=== PATIENT | female | born 1960 | race African-American/Black ===

== ENCOUNTER 2017-04-29 13:25 | Emergency (ER) | payer MEDICARE, MEDICAID ==
[~2017-04-29] VITALS: Ht 157.5 cm; Wt 61.0 kg
[2017-04-29 13:28] VITALS: BP 119/87; PULSE 70; RESP 14; TEMP 98.9; O2SAT 98
[2017-04-29] MEDS ORDERED: ASPI81CH37 CHEW (17:54)
[2017-04-29] MEDS ORDERED: HYDR12.57 PO (17:54)
[2017-04-29] MEDS ORDERED: POTA10CA PO (17:54)
[2017-04-29] MEDS ORDERED: METR-1 PO ×2 (18:12→18:13)
--- NOTE | 2017-04-29 18:12 | PD ---
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 Patient states that she started having vaginal discharge 4 days ago. Patient states that she has low abdominal pelvic discomfort and low back discomfort also over the past 4 days. Patient denies any headache. Patient denies any neck pain. Patient denies any chest pain or shortness of breath. Patient denies abdominal pain. Patient denies any dysuria or frequency. Patient denies any fever chills. PFSH Past Medical History Hypertension: Yes ?: Unknown Past Surgical History Hysterectomy: Yes Social History Alcohol Use: No Tobacco Use: No Substance Use: No Allergies-Medications (Allergen,Severity, Reaction): Coded Allergies: Sulfa (Sulfonamide Antibiotics) (Verified Allergy, Unknown, 04/29/17) Reported Meds & Prescriptions Reported Meds & Active Scripts Active Flagyl (Metronidazole) 500 Mg Tab 4 Tab PO ONCE Reported Aspirin Low Dose (Aspirin) 81 Mg Chew 81 Mg CHEW DAILY Potassium Chloride ER (Potassium Chloride) 10 Meq Cap 10 Meq PO DAILY Hydrochlorothiazide 12.5 Mg Cap 12.5 Mg PO DAILY Review of Systems General / Constitutional: No: Fever Eyes: No: Visual changes HENT: No: Headaches Cardiovascular: No: Chest Pain or Discomfort Respiratory: No: Shortness of Breath Gastrointestinal: No: Abdominal Pain Genitourinary: Positive: Discharge, No: Dysuria Musculoskeletal: No: Pain Skin: No Rash Neurologic: No: Weakness Psychiatric: No: Depression Endocrine: No: Polydipsia Hematologic/Lymphatic: No: Easy Bruising Physical Exam Narrative GENERAL: Well-nourished, well-developed patient. SKIN: Focused skin assessment warm/dry. HEAD: Normocephalic. EYES: No scleral icterus. No injection or drainage. NECK: Supple, trachea midline. No JVD or lymphadenopathy. CARDIOVASCULAR: Regular rate and rhythm without murmurs, gallops, or rubs. RESPIRATORY: Breath sounds equal bilaterally. No accessory muscle use. GASTROINTESTINAL: Abdomen soft, non-tender, nondistended. MUSCULOSKELETAL: No cyanosis, or edema. BACK: Nontender without obvious deformity. No CVA tenderness. 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 No cervical motion tenderness. Uterus is nonenlarged and nontender palpation. No adnexal mass or tenderness. Data Data Last Documented VS Vital Signs Date Time Temp Pulse Resp B/P (MAP) Pulse Ox O2 Delivery O2 Flow Rate FiO2 04/29/17 17:55 19 04/29/17 13:28 98.9 70 119/87 (98) 98 Orders Orders Azithromycin Powd Pack (Zithromax Powd P (04/29/17 18:15) Ceftriaxone Inj (Rocephin Inj) (04/29/17 18:15) Lidocaine 1% Inj (50 Ml) (Xylocaine 1% I (04/29/17 18:15) Gc And Chlamydia Pcr (04/29/17 18:04) Wet Prep Profile (04/29/17 18:04) MDM Medical Decision Making Medical Screen Exam Complete: Yes Emergency Medical Condition: Yes Differential Diagnosis Differential diagnosis including bacterial vaginosis, candidal vaginitis, cervicitis, PID. Narrative Course 56 years old female vaginal discharge. Rocephin 250 mg IM. Zithromax 1 g by mouth. Diagnosis Primary Impression: Cervicitis Patient Instructions: General Instructions Additional Instructions: Flagyl as directed. Follow-up with personal physician. Return if persistent problem or worse. Med/Other Pt SpecificInfo: Prescription(s) given Scripts Metronidazole (Flagyl) 500 Mg Tab 4 TAB PO ONCE for Infection, #4 TAB 0 Refills Prov: Matthias Scott MD 04/29/17 Disposition: 01 DISCHARGE HOME Condition: Stable Matthias Scott MD Apr 29, 2017 18:12
[2017-04-29] MEDS ORDERED: LIDOCAINE HCL 1% 50 ML VIAL IM ONE (18:15)
[2017-04-29] MEDS ORDERED: cefTRIAXone 250 MG VIAL IM ONE (18:15)
[2017-04-29] MEDS ORDERED: AZITHROMYCIN PWD FOR SUSP 1 GM PACKET PO ONE (18:15)
[2017-04-29 22:08] LABS: CHLAMYDIA PCR NOT DETECTED (NOT DETECT); NEISSERIA PCR NOT DETECTED (NOT DETECT)
== END 2017-04-29 19:09 | disposition home or self-care (01) ==
LOC: NEPD 13:25
DX: N72 Inflammatory disease of cervix uteri (principal); I10 Essential (primary) hypertension
CPT/HCPCS: 87210; 87491; 87591; 96372; 99284; J0696

== ENCOUNTER 2018-01-04 17:09 | Observation (INO) | payer MEDICAID, MEDICARE, OTHER ==
[~2018-01-04] VITALS: Ht 157.5 cm; Wt 71.0 kg
[2018-01-04] VITALS (7 sets, daily range): BP systolic 105–169; BP diastolic 57–81; PULSE 52–58; RESP 12–20; TEMP 98–99.4; O2SAT 98–99
[~2018-01-04 17:09] MED LIST: ASPI81CH6 CHEW; HYDR12.57 PO; METR-1 PO; POTA10CA PO
[2018-01-04] MEDS ORDERED: SODIUM CHLORIDE 0.9% FLUSH 10 ML FLUSH IVF PRN (17:30)
--- NOTE | 2018-01-04 17:36 | PD ---
HPI Chief Complaint: Chest Pain Time Seen by Provider: 17:17 Travel History International Travel<30 days: No Contact w/Intl Traveler<30days: No Traveled to known affect area: No History of Present Illness HPI Patient is a 57 year old female presents to the Er for evaluation of CP which makes it difficult to breath. States started last night. No history of CAD. Smoker, HTN, no HLD, no DM. Patient states pain feels heavy. Nothing makes it better or worse. States she was given nitroglycerin by a doctor but was afraid to take it. Symptoms moderate, mid chest, no radiation, associated S/s as above. PFSH Past Medical History Anxiety: Yes Hypertension: Yes Past Surgical History Surgical History: No Previous Surgery Hysterectomy: Yes Social History Alcohol Use: No Tobacco Use: No Substance Use: No Allergies-Medications (Allergen,Severity, Reaction): Coded Allergies: Sulfa (Sulfonamide Antibiotics) (Verified Allergy, Unknown, 01/04/18) Reported Meds & Prescriptions Reported Meds & Active Scripts Active Reported Aspirin Low Dose (Aspirin) 81 Mg Chew 81 Mg CHEW DAILY Potassium Chloride ER (Potassium Chloride) 10 Meq Cap 10 Meq PO DAILY Hydrochlorothiazide 12.5 Mg Cap 12.5 Mg PO DAILY Review of Systems Except as stated in HPI: all other systems reviewed are Neg Physical Exam Narrative GENERAL: WD/WN in nad. SKIN: Warm and dry. HEAD: Atraumatic. Normocephalic. EYES: Pupils equal and round. No scleral icterus. No injection or drainage. ENT: No nasal bleeding or discharge. Mucous membranes pink and moist. NECK: Trachea midline. No JVD. CARDIOVASCULAR: Regular rate and rhythm. No MGR, 2+ bilaterally equal pulses in all four extremities. RESPIRATORY: No accessory muscle use. Clear to auscultation. Breath sounds equal bilaterally. GASTROINTESTINAL: Abdomen soft, non-tender, nondistended. Hepatic and splenic margins not palpable. MUSCULOSKELETAL: Extremities without clubbing, cyanosis, or edema. No obvious deformities. NEUROLOGICAL: Awake and alert. No obvious cranial nerve deficits. Motor grossly within normal limits. Five out of 5 muscle strength in the arms and legs. Normal speech. PSYCHIATRIC: Appropriate mood and affect; insight and judgment normal. Data Data Last Documented VS Vital Signs Date Time Temp Pulse Resp B/P (MAP) Pulse Ox O2 Delivery O2 Flow Rate FiO2 01/04/18 19:09 58 20 143/79 (100) 99 Room Air 01/04/18 17:16 99.4 Orders Orders Electrocardiogram (01/04/18 17:17) Ckmb (Isoenzyme) Profile (01/04/18 17:17) Complete Blood Count With Diff (01/04/18 17:17) Comprehensive Metabolic Panel (01/04/18 17:17) Magnesium (Mg) (01/04/18 17:17) Prothrombin Time / Inr (Pt) (01/04/18 17:17) Act Partial Throm Time (Ptt) (01/04/18 17:17) Troponin I (01/04/18 17:17) Chest, Single Ap (01/04/18 17:17) Ecg Monitoring (01/04/18 17:17) Iv Access Insert/Monitor (01/04/18 17:17) Oximetry (01/04/18 17:17) Oxygen Administration (01/04/18 17:17) Sodium Chloride 0.9% Flush (Ns Flush) (01/04/18 17:30) Aspirin Chew (Aspirin Chew) (01/04/18 19:30) Nitroglycerin Sl (Nitrostat Sl) (01/04/18 19:30) Admit Order (Ed Use Only) (01/04/18 ) Activity Bed Rest With Brp (01/04/18 19:21) Vital Signs (Adult) Q4H (01/04/18 19:21) Cardiac Rhythm .As Directed (01/04/18 19:21) Notify Dr: Other .PRN (01/04/18 19:21) Notify DrRossana Parameters (01/04/18 19:21) Resp Oxygen Nasal Cannula (01/04/18 ) Ckmb (Isoenzyme) Profile (01/04/18 19:21) Ckmb (Isoenzyme) Profile (01/04/18 22:21) Troponin I (01/04/18 19:21) Troponin I (01/04/18 22:21) Electrocardiogram (01/04/18 19:21) Electrocardiogram (01/04/18 22:21) ^ Obtain (01/04/18 19:21) Sodium Chloride 0.9% Flush (Ns Flush) (01/04/18 19:30) Sodium Chloride 0.9% Flush (Ns Flush) (01/04/18 21:00) Wire Annealer / Telemetry ALTON.Q8H (01/04/18 19:21) Admit Order (Ed Use Only) (01/04/18 ) Labs Laboratory Tests Test 01/04/18 17:25 White Blood Count 4.8 TH/MM3 Red Blood Count 4.37 MIL/MM3 Hemoglobin 11.7 GM/DL Hematocrit 36.0 % Mean Corpuscular Volume 82.3 FL Mean Corpuscular Hemoglobin 26.8 PG Mean Corpuscular Hemoglobin Concent 32.5 % Red Cell Distribution Width 13.7 % Platelet Count 217 TH/MM3 Mean Platelet Volume 9.0 FL Neutrophils (%) (Auto) 42.6 % Lymphocytes (%) (Auto) 45.1 % Monocytes (%) (Auto) 10.4 % Eosinophils (%) (Auto) 0.9 % Basophils (%) (Auto) 1.0 % Neutrophils # (Auto) 2.1 TH/MM3 Lymphocytes # (Auto) 2.2 TH/MM3 Monocytes # (Auto) 0.5 TH/MM3 Eosinophils # (Auto) 0.0 TH/MM3 Basophils # (Auto) 0.0 TH/MM3 CBC Comment DIFF FINAL Differential Comment Prothrombin Time 9.8 SEC Prothromb Time International Ratio 1.0 RATIO Activated Partial Thromboplast Time 20.1 SEC Blood Urea Nitrogen 13 MG/DL Creatinine 0.95 MG/DL Random Glucose 88 MG/DL Total Protein 7.9 GM/DL Albumin 3.8 GM/DL Calcium Level 8.7 MG/DL Magnesium Level 2.1 MG/DL Alkaline Phosphatase 60 U/L Aspartate Amino Transf (AST/SGOT) 31 U/L Alanine Aminotransferase (ALT/SGPT) 39 U/L Total Bilirubin 0.3 MG/DL Sodium Level 142 MEQ/L Potassium Level 3.7 MEQ/L Chloride Level 107 MEQ/L Carbon Dioxide Level 22.5 MEQ/L Anion Gap 13 MEQ/L Estimat Glomerular Filtration Rate 73 ML/MIN Total Creatine Kinase 96 U/L Troponin I LESS THAN 0.02 NG/ML [facility] Medical Decision Making Medical Screen Exam Complete: Yes Emergency Medical Condition: Yes Differential Diagnosis ACS, AMI, Gerd, PUD, Pna. Narrative Course Roomed in ED, appears fairly comfortable. CXR, EKG, CBC, CMP, Trop fairly unremarkable. Discussed additional workup for CP and she is agreeable. 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 Diagnosis Primary Impression: Chest pain Jean Castañeda MD Jan 04, 2018 17:36
[2018-01-04 17:52] LABS: AUTOMATED NEUTROPHIL # 2.1 TH/MM3 (1.8-7.7); EOSINOPHIL % 0.9 % (0.0-4.0); HEMOGLOBIN 11.7 GM/DL (11.6-15.3); LYMPH % 45.1 % (9.0-44.0); LYMPHOCYTE # 2.2 TH/MM3 (1.0-4.8); MEAN CELL VOLUME 82.3 FL (80.0-100.0); MEAN CORPUSCULAR HEMOGLOBIN 26.8 PG (27.0-34.0); MEAN CORPUSCULAR HGB CONC 32.5 % (32.0-36.0); MONO % 10.4 % (0.0-8.0); MONOCYTE # 0.5 TH/MM3 (0-0.9); NEUT % 42.6 % (16.0-70.0); PLATELET COUNT 217 TH/MM3 (150-450); RED BLOOD COUNT 4.37 MIL/MM3 (4.00-5.30); RED CELL DISTRIBUTION WIDTH 13.7 % (11.6-17.2); WHITE BLOOD COUNT 4.8 TH/MM3 (4.0-11.0)
--- NOTE | 2018-01-04 17:53 | RADRPT ---
EXAM DATE: 01/04/2018 5:30 PM EDT AGE/SEX: 57 years / Female INDICATIONS: Chest pain. CLINICAL DATA: This is the patient's initial encounter. Patient reports that signs and symptoms have been present for 2 days and indicates a pain score of 8/10. MEDICAL/SURGICAL HISTORY: Hypertension. Hysterectomy. COMPARISON: No prior exams available for comparison. FINDINGS: A single AP view of the chest demonstrates the lungs to be symmetrically aerated without evidence of mass, infiltrate or effusion. The cardiomediastinal contours are unremarkable. Osseous structures a re intact. CONCLUSION: No active disease. Electronically signed by: Nain Vinson MD 01/04/2018 5:52 PM EDT
[2018-01-04 18:16] LABS: PROTHROMBIN TIME - PATIENT 9.8 SEC (9.8-11.6)
[2018-01-04 18:53] LABS: ALBUMIN 3.8 GM/DL (3.4-5.0); ALKALINE PHOSPHATASE 60 U/L (45-117); ALT (GPT) 39 U/L (10-53); AST (GOT) 31 U/L (15-37); BICARBONATE 22.5 MEQ/L (21.0-32.0); BLOOD UREA NITROGEN 13 MG/DL (7-18); CALCIUM 8.7 MG/DL (8.5-10.1); CHLORIDE 107 MEQ/L (98-107); CREATININE 0.95 MG/DL (0.50-1.00); GLOMERULAR FILTRATION RATE 73 ML/MIN (>89); GLUCOSE,RANDOM 88 MG/DL (74-106); MAGNESIUM 2.1 MG/DL (1.5-2.5); SODIUM (NA) 142 MEQ/L (136-145); TOTAL BILIRUBIN ADULT 0.3 MG/DL (0.2-1.0); TOTAL PROTEIN 7.9 GM/DL (6.4-8.2); TROPONIN I LESS THAN 0.02 NG/ML (0.02-0.05)
[2018-01-04] MEDS ORDERED: SODIUM CHLORIDE 0.9% FLUSH 10 ML FLUSH IV FLUSH PRN (19:30)
[2018-01-04] MEDS ORDERED: ASPIRIN 81 MG CHEW TAB CHEW ONE (19:30)
[2018-01-04] MEDS ORDERED: NITROGLYCERIN 0.4 MG SL 25 TABS/BTL SL ONE (19:30)
[2018-01-04] MEDS: SODIUM CHLORIDE 0.9% FLUSH 10 ML FLUSH IV FLUSH SCH (21:11)
[2018-01-04 21:20] LABS: TROPONIN I LESS THAN 0.02 NG/ML (0.02-0.05)
[2018-01-04 23:03] LABS: TROPONIN I LESS THAN 0.02 NG/ML (0.02-0.05)
[2018-01-05 03:22] VITALS: BP 119/71; PULSE 51; RESP 18; TEMP 98.1; O2SAT 98
[2018-01-05 08:00] VITALS: BP 115/69; PULSE 50; RESP 16; TEMP 97.8; O2SAT 98
--- NOTE | 2018-01-05 08:36 | HHI.HP ---
HPI Primary Care Physician Unknown Chief Complaint Left chest pain History of Present Illness 57 y.o. AA Female presented to the ER last PM for continued left sub mammary chest pain x 2 days. Started without any definite precipitating factors. Points to the area sub mammary closest to the lower sternum along the intercostal/rib area. Denotes tenderness on palpation. No skin rashes in this area. States she became mildly anxious about the pain and she believes that precipitated some associated dyspnea at times. No associated N/V or diaphoresis. Pain has been in constant in nature. Denies any history of CAD. Denotes an ETT many years ago believes normal. Some mild ankle edema bilaterally she states on admission, now resolved after sleeping w/ elevation. Review of Systems Consitutional: DENIES: Fatigue, Fever, Chills, Weight gain, Weight loss Eyes: DENIES: Amaurosis Fugax, Change in vision HEENT: DENIES: Lightheadedness, Change in hearing Respiratory: COMPLAINS OF: Shortness of breath Cardiovascular: COMPLAINS OF: Chest pain Gastrointestinal: DENIES: Nausea, Vomiting, Change in bowel habits, Reflux, Bloody stools, Melena Genitourinary: DENIES: Urinary incontinence, Difficulty voiding Neurologic: DENIES: Tingling or numbness, Memory problems, Poor Balance, Stroke symptoms Musculoskeletal: DENIES: Joint pain, Muscle pain, Limited range of motion, Back pain Psychiatric: DENIES: Anxiety, Depression, Sleep disturbances Hematologic: DENIES: Bruising tendencies, Bleeding tendencies Endocrine: DENIES: Weight gain, Weight loss, Thyroid disease Past Family Social History Allergies: Coded Allergies: Sulfa (Sulfonamide Antibiotics) (Verified Allergy, Unknown, 01/04/18) Past Medical History PMH: HTN, Anxiety, Tobacco Use. Denies any Hx of Diabetes, Hyperlipidemia, or known CAD Past Surgical History Hysterectomy Reported Medications Reported Meds & Active Scripts Active Reported Aspirin Low Dose (Aspirin) 81 Mg Chew 81 Mg CHEW DAILY Potassium Chloride ER (Potassium Chloride) 10 Meq Cap 10 Meq PO DAILY Hydrochlorothiazide 12.5 Mg Cap 12.5 Mg PO DAILY Active Ordered Medications Current Medications Medications (Trade) Dose Ordered Sig/Jm Route Start Time Stop Time Status Last Admin (NS Flush) 2 ml UNSCH PRN IVF 01/04/18 17:30 (NS Flush) 2 ml UNSCH PRN IV FLUSH 01/04/18 19:30 (NS Flush) 2 ml BID IV FLUSH 01/04/18 21:00 01/04/18 21:11 Family History Mother: of "old age", unsure if she may have had heart problems. Father: of lung cancer Sister and Brother: of lung cancer Sister" of bone marrow cancer Social History Tobacco use since age 8, 1 ppd = 49 pk/yrs ETOH: 1 drink/month Substance abuse: denies Active around her house Physical Exam Vital Signs Vital Signs Date Time Temp Pulse Resp B/P (MAP) Pulse Ox O2 Delivery O2 Flow Rate FiO2 01/05/18 03:22 98.1 51 18 119/71 (87) 98 01/04/18 23:27 98.0 52 18 105/57 (73) 98 01/04/18 21:47 98.2 53 18 126/70 (88) 98 01/04/18 20:21 01/04/18 20:00 18 01/04/18 19:49 99 01/04/18 19:09 58 20 143/79 (100) 99 Room Air 01/04/18 18:52 58 12 138/72 (94) 98 Room Air 01/04/18 17:21 Room Air 01/04/18 17:20 56 15 169/81 (110) 99 Room Air 01/04/18 17:16 99.4 Physical Exam GENERAL: Pleasant 57 y.o. AA Female well nourished resting quieting in bed watching TV. No acute distress SKIN: Warm and dry. HEAD: Atraumatic. Normocephalic. EYES: Pupils equal and round. No scleral icterus. No injection or drainage. ENT: No nasal bleeding or discharge. Mucous membranes pink and moist. NECK: Trachea midline. No JVD. No carotid bruits CARDIOVASCULAR: Regular rhythm, bradycardic rate. S1 and S2 in RRR, No S3, S4, rub, gallop or murmur RESPIRATORY: No accessory muscle use. Clear to auscultation. Breath sounds equal bilaterally. GASTROINTESTINAL: Abdomen soft, non-tender, nondistended. Hepatic and splenic margins not palpable. MUSCULOSKELETAL: Extremities without clubbing, cyanosis, or edema. No obvious deformities. Mild tenderness on palpation just beneath left breast overlying ribs and intercostal area closest to sternum. No visible shingles rash NEUROLOGICAL: Awake and alert. No obvious cranial nerve deficits. Motor grossly within normal limits. Five out of 5 muscle strength in the arms and legs. Normal speech. PSYCHIATRIC: Appropriate mood and affect; insight and judgment normal. EXTREMITES: no edema BLE, 2+ pulses. Laboratory Laboratory Tests Test 01/04/18 17:25 01/04/18 20:20 01/04/18 22:20 White Blood Count 4.8 Red Blood Count 4.37 Hemoglobin 11.7 Hematocrit 36.0 Mean Corpuscular Volume 82.3 Mean Corpuscular Hemoglobin 26.8 Mean Corpuscular Hemoglobin Concent 32.5 Red Cell Distribution Width 13.7 Platelet Count 217 Mean Platelet Volume 9.0 Neutrophils (%) (Auto) 42.6 Lymphocytes (%) (Auto) 45.1 Monocytes (%) (Auto) 10.4 Eosinophils (%) (Auto) 0.9 Basophils (%) (Auto) 1.0 Neutrophils # (Auto) 2.1 Lymphocytes # (Auto) 2.2 Monocytes # (Auto) 0.5 Eosinophils # (Auto) 0.0 Basophils # (Auto) 0.0 CBC Comment DIFF FINAL Differential Comment Prothrombin Time 9.8 Prothromb Time International Ratio 1.0 Activated Partial Thromboplast Time 20.1 Blood Urea Nitrogen 13 Creatinine 0.95 Random Glucose 88 Total Protein 7.9 Albumin 3.8 Calcium Level 8.7 Magnesium Level 2.1 Alkaline Phosphatase 60 Aspartate Amino Transf (AST/SGOT) 31 Alanine Aminotransferase (ALT/SGPT) 39 Total Bilirubin 0.3 Sodium Level 142 Potassium Level 3.7 Chloride Level 107 Carbon Dioxide Level 22.5 Anion Gap 13 Estimat Glomerular Filtration Rate 73 Total Creatine Kinase 96 103 52 Troponin I LESS THAN 0.02 LESS THAN 0.02 LESS THAN 0.02 Creatine Kinase MB LESS THAN 0.5 Result Diagram: 01/04/18 1725 01/04/18 1725 Imaging Last 24 hours Impressions Chest X-Ray 01/04/18 1717 Signed Impressions: CONCLUSION: No active disease. Course EKGs x 2 Sinus Bradycardia, no ST-T changes to suggest ischemia Caprini VTE Risk Assessment Caprini VTE Risk Assessment: No/Low Risk (score <= 1) Caprini Risk Assessment Model Point Value = 1 Point Value = 2 Point Value = 3 Point Value = 5 Age 41-60 Minor surgery BMI > 25 kg/m2 Swollen legs Varicose veins or History of unexplained or recurrent spontaneous Oral contraceptives or hormone replacement Sepsis (< 1 month) Serious lung disease, including pneumonia (< 1 month) Abnormal pulmonary function Acute myocardial infarction Congestive heart failure (< 1 month) History of inflammatory bowel disease Medical patient at bed rest Age 61-74 Arthroscopic surgery Major open surgery (> 45 min) Laparoscopic surgery (> 45 min) Malignancy Confined to bed (> 72 hours) Immobilizing plaster cast Central venous access Age >= 75 History of VTE Family history of VTE Factor V Leiden Prothrombin [id number] Lupus anticoagulant Anticardiolipin antibodies Elevated serum homocysteine Heparin-induced thrombocytopenia Other congenital or acquired thrombophilia Stroke (< 1 month) Elective arthroplasty Hip, pelvis, or leg fracture Acute spinal cord injury (< 1 month) Prophylaxis Regimen Total Risk Factor Score Risk Level Prophylaxis Regimen 0-1 Low Early ambulation 2 Moderate Order ONE of the following: *Sequential Compression Device (SCD) *Heparin 5000 units SQ BID 3-4 Higher Order ONE of the following medications: *Heparin 5000 units SQ TID *Enoxaparin/Lovenox 40 mg SQ daily (WT < 150 kg, CrCl > 30 mL/min) *Enoxaparin/Lovenox 30 mg SQ daily (WT < 150 kg, CrCl > 10-29 mL/min) *Enoxaparin/Lovenox 30 mg SQ BID (WT < 150 kg, CrCl > 30 mL/min) AND/OR *Sequential Compression Device (SCD) 5 or more Highest Order ONE of the following medications: *Heparin 5000 units SQ TID (Preferred with Epidurals) *Enoxaparin/Lovenox 40 mg SQ daily (WT < 150 kg, CrCl > 30 mL/min) *Enoxaparin/Lovenox 30 mg SQ daily (WT < 150 kg, CrCl > 10-29 mL/min) *Enoxaparin/Lovenox 30 mg SQ BID (WT < 150 kg, CrCl > 30 mL/min) AND *Sequential Compression Device (SCD) Assessment and Plan Problem List: (1) Chest pain ICD Codes: R07.9 - Chest pain, unspecified Status: Acute Assessment and Plan #!: chest pain: patient was observed in the [facility] overnight on Telemetry. No Events noted on review of Telemetry. Patient has had unremarkable labs and has ruled out for ischemia with 3 sets of Cardiac enzymes and EKGs. Patient will be seen and evaluated by Dr. Khan this am as he is present in the building and will be seeing the patient shortly for evaluation and further recommendation. Patient believes she could ambulate on Treadmill for Oscar ETT if recommended as although her pain is atypical in nature, she does have risk factors for coronary disease. Code Status FULL CODE Discussed Condition With Dr. Khan (Cardiology) Darcy Lopez Jan 05, 2018 08:36
--- NOTE | 2018-01-05 08:51 | PD.CARD.PN ---
Subjective Subjective Remarks Patient was presented by nurse practitioner, documentation reviewed, laboratory and radiographic findings reviewed and then the patient was seen and examined personally. I am in agreement with documentation in conclusion. Chest pain is clearly musculoskeletal however the patient has a long history of tobacco abuse symptoms suggesting COPD and additional risk factors for coronary disease. As a result she will be evaluated with full protocol including exercise stress test. Objective Medications Current Medications Medications (Trade) Dose Ordered Sig/Jm Route Start Time Stop Time Status Last Admin (NS Flush) 2 ml UNSCH PRN IVF 01/04/18 17:30 (NS Flush) 2 ml UNSCH PRN IV FLUSH 01/04/18 19:30 (NS Flush) 2 ml BID IV FLUSH 01/04/18 21:00 01/04/18 21:11 (Microzide) 12.5 mg DAILY PO 01/05/18 09:00 (KCl) 10 meq DAILY PO 01/05/18 09:00 Vital Signs / I&O Vital Signs Date Time Temp Pulse Resp B/P (MAP) Pulse Ox O2 Delivery O2 Flow Rate FiO2 01/05/18 08:00 97.8 50 16 115/69 (84) 98 01/05/18 03:22 98.1 51 18 119/71 (87) 98 01/04/18 23:27 98.0 52 18 105/57 (73) 98 01/04/18 21:47 98.2 53 18 126/70 (88) 98 01/04/18 20:21 01/04/18 20:00 18 01/04/18 19:49 99 01/04/18 19:09 58 20 143/79 (100) 99 Room Air 01/04/18 18:52 58 12 138/72 (94) 98 Room Air 01/04/18 17:21 Room Air 01/04/18 17:20 56 15 169/81 (110) 99 Room Air 01/04/18 17:16 99.4 Physical Exam Exquisitely tender over the left costochondral junctions Chest mildly diminished breath sounds with slight rhonchi right posterior Regular sinus rhythm with no gallops rubs or murmurs Abdomen soft nontender Laboratory Laboratory Tests Test 01/04/18 17:25 01/04/18 20:20 01/04/18 22:20 White Blood Count 4.8 TH/MM3 Red Blood Count 4.37 MIL/MM3 Hemoglobin 11.7 GM/DL Hematocrit 36.0 % Mean Corpuscular Volume 82.3 FL Mean Corpuscular Hemoglobin 26.8 PG Mean Corpuscular Hemoglobin Concent 32.5 % Red Cell Distribution Width 13.7 % Platelet Count 217 TH/MM3 Mean Platelet Volume 9.0 FL Neutrophils (%) (Auto) 42.6 % Lymphocytes (%) (Auto) 45.1 % Monocytes (%) (Auto) 10.4 % Eosinophils (%) (Auto) 0.9 % Basophils (%) (Auto) 1.0 % Neutrophils # (Auto) 2.1 TH/MM3 Lymphocytes # (Auto) 2.2 TH/MM3 Monocytes # (Auto) 0.5 TH/MM3 Eosinophils # (Auto) 0.0 TH/MM3 Basophils # (Auto) 0.0 TH/MM3 CBC Comment DIFF FINAL Differential Comment Prothrombin Time 9.8 SEC Prothromb Time International Ratio 1.0 RATIO Activated Partial Thromboplast Time 20.1 SEC Blood Urea Nitrogen 13 MG/DL Creatinine 0.95 MG/DL Random Glucose 88 MG/DL Total Protein 7.9 GM/DL Albumin 3.8 GM/DL Calcium Level 8.7 MG/DL Magnesium Level 2.1 MG/DL Alkaline Phosphatase 60 U/L Aspartate Amino Transf (AST/SGOT) 31 U/L Alanine Aminotransferase (ALT/SGPT) 39 U/L Total Bilirubin 0.3 MG/DL Sodium Level 142 MEQ/L Potassium Level 3.7 MEQ/L Chloride Level 107 MEQ/L Carbon Dioxide Level 22.5 MEQ/L Anion Gap 13 MEQ/L Estimat Glomerular Filtration Rate 73 ML/MIN Total Creatine Kinase 96 U/L 103 U/L 52 U/L Troponin I LESS THAN 0.02 NG/ML LESS THAN 0.02 NG/ML LESS THAN 0.02 NG/ML Creatine Kinase MB LESS THAN 0.5 NG/ML Imaging Last 24 hours Impressions Chest X-Ray 01/04/18 2378 Signed Impressions: CONCLUSION: No active disease. Assessment and Plan Problem List: (1) Chest pain ICD Codes: R07.9 - Chest pain, unspecified Status: Acute Plan: Patient obviously has some costochondral pain but will be ruled out for ischemic heart disease due to risk factors. She has been educated again regards importance of cessation of smoking however she has already lost members of her family to lung cancer, and has been smoking since 8 years of age and is already aware of risk Milind Khan MD Jan 05, 2018 08:51
--- NOTE | 2018-01-05 08:54 | EKG ---
Date Performed: 01/04/2018 Time Performed: 22:25:56 PTAGE: 57 years EKG: SINUS BRADYCARDIA BORDERLINE ECG No significant change PREVIOUS TRACING : 01/04/2018 20.16 DOCTOR: Milind Khan Interpretating Date/Time 01/05/2018 08:52:55
--- NOTE | 2018-01-05 08:55 | EKG ---
Date Performed: 01/04/2018 Time Performed: 20:16:25 PTAGE: 57 years EKG: SINUS BRADYCARDIA BORDERLINE ECG PREVIOUS TRACING : 01/04/2018 17.21 DOCTOR: Milind Khan Interpretating Date/Time 01/05/2018 08:53:18
[2018-01-05 08:56] VITALS: PULSE 54
--- NOTE | 2018-01-05 08:56 | EKG ---
Date Performed: 01/04/2018 Time Performed: 17:21:04 PTAGE: 57 years EKG: SINUS BRADYCARDIA BORDERLINE ECG NO PREVIOUS TRACING DOCTOR: Milind Khan Interpretating Date/Time 01/05/2018 08:54:02
[2018-01-05] MEDS ORDERED: HYDROCHLOROTHIAZIDE 12.5 MG CAP PO SCH (09:00)
[2018-01-05] MEDS ORDERED: POTASSIUM CHLORIDE 10 MEQ CAP PO SCH (09:00)
[2018-01-05] MEDS: SODIUM CHLORIDE 0.9% FLUSH 10 ML FLUSH IV FLUSH SCH (09:05)
--- NOTE | 2018-01-05 09:59 | TR ---
Date Performed: 01/05/2018 Time Performed: 09:23:13 DOCTOR: Milind Khan DRUG LIST: CLINICAL HISTORY: REASON FOR TEST: CHEST PAIN REASON FOR ENDING: OBSERVATION: CONCLUSION: Patient exercised using the Oscar protocol for 6 min 25 sec. reaching 93% of predict ed heart rate. She showed j point depression but with upsloping ST segments not diagnostic of ischemi a. She had no symptoms of ischemia and recovery was rapid and normal. Hemodynamic response to exer cise was normal. No significant arrhythmia was present. COMMENTS: Low probability of significant ischemic heart disease as cause of current presentation .
--- NOTE | 2018-01-05 10:04 | HHI.DCPOC ---
Discharge Care Plan Diagnosis: (1) Tobacco abuse (2) Chest pain Goals to Promote Your Health * To prevent worsening of your condition and complications * To maintain your health at the optimal level Directions to Meet Your Goals Take your medications as prescribed Follow your dietary instruction Follow activity as directed Keep your appointments as scheduled Take your immunizations and boosters as scheduled If your symptoms worsen call your PCP, if no PCP go to Urgent Care Center or Emergency Room Smoking is Dangerous to Your Health. Avoid second hand smoke Call the 24-hour hour crisis hotline for domestic abuse at [facility] Jan 05, 2018 10:04
== END 2018-01-05 11:03 | disposition home or self-care (01) ==
LOC: NEPE 17:09 → NEDA 19:29 → NEPHCDU 20:26
PROVIDERS: ADMIT Internal Medicine Interventional Cardiology; ATTEND Internal Medicine Interventional Cardiology
DX: R07.1 Chest pain on breathing (principal); I10 Essential (primary) hypertension; F17.200 Nicotine dependence, unspecified, uncomplicated; R06.02 Shortness of breath; F41.9 Anxiety disorder, unspecified; Z90.710 Acquired absence of both cervix and uterus; R06.00 Dyspnea, unspecified; R60.0 Localized edema; R00.1 Bradycardia, unspecified; R94.31 Abnormal electrocardiogram [ECG] [EKG]
CPT/HCPCS: 71045; 80053; 82550; 82552; 83735; 84484; 85025; 85610; 85730; 93005; 93017; 99285; G0378